=== PATIENT | male | born 1975 | race Caucasian/White ===

== ENCOUNTER 2021-10-28 23:22 | Emergency (ER) | payer OTHER ==
[~2021-10-28] VITALS: Ht 177.8 cm; Wt 104.5 kg
[2021-10-29] VITALS: BP 106/76
[2021-10-29] MEDS ORDERED: LIDOCAINE 2%/EPI 1:100,000 20 ML VIAL. INJ ONE
[2021-10-29] MEDS ORDERED: SULF1TAB24 PO (00:06)
[2021-10-29] MEDS ORDERED: AMOX1TAB11 PO (00:06)
--- NOTE | 2021-10-29 00:07 | ED.ADGEN ---
Past Medical History Past Surgical History: No Surgical History General Adult EDM: Chief Complaint: EYE PROBLEMS HPI: HPI: Patient is a 45 year old male coming in for swelling and redness below his left eye. Patient states that about 4 days ago he started noticing a pimple-like lesion which she was trying to squeeze and "pop". Noticed today that the swelling below his eyes gotten worse. Denies any eye pain, discharge or redness. Obese changes. No pain with eye movements. No prior history of abscesses Review of Systems: Review of Systems: All other systems within normal limits except for as noted in the HPI Current Medications: Current Medications Medications (Trade) Dose Ordered Sig/Vivian Start Time Stop Time Status Last Admin Dose Admin Lidocaine/ Epinephrine (LIDOCAINE 2%-EPI 1:100,000 multi-dose) 20 ml 1X ONCE 10/29/21 00:00 10/29/21 00:01 Allergies: Allergies: Allergies Coded Allergies Type Severity Reaction Last Updated Verified No Known Drug Allergies 10/28/21 No Physical Exam: PE: Constitutional: Well developed, well nourished, no acute distress, non-toxic appearance. [] HENT: Normocephalic, atraumatic, bilateral external ears normal, nose normal. Swelling below left eye with a firm 1 cm subcutaneous Eyes: PERRLA, conjunctiva normal, no discharge. [] Neck: No rigidity, supple, no stridor. [] Cardiovascular: Regular rate and rhythm, brisk cap refill [] Lungs & Thorax: Non labored symmetric respirations, no tachypnea or respiratory distress [] Abdomen: Soft, nondistended. Skin: Warm, dry, no erythema, no rash. [] Back: Unremarkable Extremities: No deformities, range of motion grossly intact, no lower extremity edema [] Neurologic: Alert and oriented X 3, no focal deficits noted. [] Psychologic: Affect normal, judgement normal, mood normal. [] Current Patient Data: Vital Signs: Vital Signs Date Time Temp Pulse Resp B/P (MAP) Pulse Ox O2 Delivery O2 Flow Rate FiO2 10/28/21 23:29 98.3 89 16 149/79 (102) 95 Room Air 98.3 EKG: EKG: [] Heart Score: C/O Chest Pain: No Risk Factors: Risk Factors: DM, Current or recent (<one month) smoker, HTN, HLP, family history of CAD, obesity. Risk Scores: Score 0 - 3: 2.5% MACE over next 6 weeks - Discharge Home Score 4 - 6: 20.3% MACE over next 6 weeks - Admit for Clinical Observation Score 7 - 10: 72.7% MACE over next 6 weeks - Early Invasive Strategies Radiology/Procedures: Radiology/Procedures: Indication: abscess Procedure: The patient was positioned appropriately. Local anesthesia was 2% lidocaine with. An incision was then made over the apex of the lesion and scant amount purulent drainage and small amount of caseous material was expressed. The patients tetanus status updated as needed. The patient tolerated the procedure well. Complications: none.[] Course & Med Decision Making: Course & Med Decision Making Patient given a dose of Rocephin and tetanus updated. Incomplete drainage due to caseous material likely a sebaceous cyst that is infected. Some drainage expressed. Will treat with antibiotics and warm compresses Ana Rosaon Disclaimer: Mahnaz Disclaimer: This electronic medical record was generated, in whole or in part, using a voice recognition dictation system. Departure Departure Impression: Primary Impression: Facial abscess Disposition: HOME / SELF CARE / HOMELESS Condition: STABLE Patient Instructions: Abscess, Care After Additional Instructions: Warm compresses to right cheek for 10 to 15 minutes at least 4 times a day Scripts Sulfamethoxazole/Trimethoprim (BACTRIM DS TABLET) 1 Each Tablet 1 TAB PO BID for infection for 7 Days, #14 TAB Prov: MICK CASTRO MD 10/29/21 Amoxicillin/Potassium Clav (AMOX TR-K CLV 875-125 MG TAB) 1 Each Tablet 1 TAB PO BID for antibiotic for 7 Days, #14 TAB Prov: MICK CASTRO MD 10/29/21 MICK CASTRO MD Oct 29, 2021 00:07
[2021-10-29] MEDS ORDERED: cefTRIAXone IM 1 GM VIAL IM ONE (00:30)
[2021-10-29] MEDS ORDERED: DIPHTH,PERTUSS(ACELL),TET TOX 0.5 ML DISP.SYRIN. VAX IM ONE (01:00)
== END 2021-10-29 00:21 | disposition home or self-care (01) ==
LOC: ER 23:22
DX: L02.01 Cutaneous abscess of face (principal)
CPT/HCPCS: 10060; 90471; 90715; 96372; 99284; J0696; J3490